=== PATIENT | female | born 1970 | race American Indian/Alaskan Native ===

== ENCOUNTER 2017-07-25 20:25 | Emergency (ER) | payer MEDICARE ==
[2017-07-26] MEDS ORDERED: XYLOCAINE 2% INFILTRATI ONE ×2 (01:12→01:54)
[2017-07-26] MEDS ORDERED: TYLENOL PO ONE (01:17)
[2017-07-26] MEDS ORDERED: BOOSTRIX IM ONE (01:18)
[2017-07-26] MEDS ORDERED: XYLOCAINE 1% 20 mL INFILTRATI ONE (01:18)
--- NOTE | 2017-07-26 01:18 | Emergency Department Report ---
ED Head Injury/Laceration HPI - HPI Occurred When: Today Mechanism: Fall Location: Frontal Pain: None Tetanus Status: Up to Date Symptoms: Loss of Consciousness: No, Nausea: No, Blurred Vision: No, Unusual Behavior: No, Headache: Yes, Swelling: Yes, Bruising: Yes, Break in Skin: Yes, Bleeding: Yes Other History: 46-year-old female past medical history seizures, chronic pain, GERD presents with complaint of laceration to left side frontal scalp. Patient states that she tripped at home fell and hit her head at the edge of a book table. Patient states she was dazed for several minutes. Denies discrete loss of consciousness. Patient is currently awake alert and oriented 3 fully lucid and not in acute distress. Visible small lacerations left frontal scalp/ forehead region. Tetanus vaccination up-to-date as per patient. Patient denies chest pain palpitations shortness of breath nausea vomiting blurry vision. Fully lucid and ambulatory. ED General PMH - Past Medical History General Medical History: other (Larry Verma) - Social History Smoking Status: Never Smoker ED Review of Systems ROS: Stated complaint: FALL/HEADACHE Other details as noted in HPI Constitutional: denies: chills, fever Eyes: denies: eye pain, eye discharge, vision change ENT: as per HPI. denies: ear pain, throat pain Respiratory: denies: cough, shortness of breath, wheezing Cardiovascular: denies: chest pain, palpitations Endocrine: no symptoms reported Gastrointestinal: denies: abdominal pain, nausea, diarrhea Genitourinary: denies: urgency, dysuria, discharge Musculoskeletal: denies: back pain, joint swelling, arthralgia Skin: denies: rash, lesions Neurological: denies: headache, weakness, paresthesias Psychiatric: denies: anxiety, depression Hematological/Lymphatic: denies: easy bleeding, easy bruising Head Inj w/lac Physical Exam - Exam General: Vital signs noted. No distress. Alert and acting appropriately. Adult Head Front + Back: 1 - 1 cm diagonal laceration here with surrounding abrasion Head: Yes PERRL, No Hemotympanum, No Hematoma/Ecchymosis, No Epistaxis, No Stepoff/Deformity, No Abrasion, No Foreign Body Wound Length (cm): 1 Laceration Location: Facial, Frontal Chest, Abd, & Ext: Yes Clear Lung Sounds, No Neck Pain (no midline tenderness no posterior neck tenderness on exam), No Chest Injury/Pain, No Regular Heart Rhythm, No Heart Murmur, No Abdominal Tenderness (abdomen soft nontender nondistended), No Back Tenderness, No Extremity Injury Neuroligical (Head Inj W/O Lac: Yes Normal Speech, Yes Normal Gait, No Lethargy , No Disorientation (patient is fully lucid and awake alert and oriented able to provide a detailed history and ambulatory), No Focal Numbness, No Focal Weakness - Laceration /Wound Repair Face Wound Location: head, face (left upper anterior forehead near her hairline) Wound Length (cm): 1 Wound's Depth, Shape: linear Irrigated w/ Saline (ccs): 500 Betadine Prep?: Yes Anesthesia: 1% Lidocaine Volume Anesthetic (ccs): 6 Wound Debrided: minimal Wound Repaired With: sutures Suture Size/Type: 4:0, proline Number of Sutures: 2 Progress: Area infiltrated with lidocaine. Good local anesthesia achieved. Area irrigated with saline. 2 Prolene sutures placed with good closure achieved. Covered with gauze and antibiotic ointment afterward. ED Critical Care Note - Critical Care Note Comments: A/P: Minor head injury, forehead laceration 1-sutures to be removed in 7 days 2-nexus criteria negative. Patient is fully lucid and ambulatory. Cranial nerves 2, 3, 4, 5, 6, 7, 8,10, 11, 12 intact on clinical exam, patient is fully lucid awake alert and oriented 3 conversant. Denies any upper or lower extremity paresthesias and has 5/5 strength in bilateral upper and lower extremities on clinical exam. As per history there is no indication patient had a seizure. Patient states she has been taking her seizure medicines which are Dilantin and Keppra on a regular basis 3-Tylenol when necessary 4- tetanus vaccine up-to-date 5- patient given post concussion precautions. Advised patient to return to the ED for any fevers chills nausea vomiting headache confusion. When drainage from site or erythema at site of laceration. ED Disposition Clinical Impression: Minor head injury without loss of consciousness Qualifiers: Encounter type: initial encounter Qualified Code(s): S09.90XA - Unspecified injury of head, initial encounter Forehead laceration Qualifiers: Encounter type: initial encounter Qualified Code(s): S01.81XA - Laceration without foreign body of other part of head, initial encounter Disposition: TO HOME OR SELFCARE Is pt being admited?: No Does the pt Need Aspirin: No Condition: Stable Instructions: Suture Care (ED), Laceration (ED), Minor Head Injury (ED), Concussion (ED) Additional Instructions: Sutures to be removed in 5-7 days. Patient can return to the ED for this. Prescriptions: Acetaminophen [Acetaminophen TAB] 500 mg PO Q6HR PRN #20 tablet PRN Reason: Headache Referrals: [facility] [Provider Group] - 3-5 Days Forms: Work/School Release Form(ED) Time of Disposition: 01:46
[2017-07-26 02:25] VITALS: BP 142/81
--- NOTE | 2017-07-26 03:05 | Cat Scan Report ---
FINAL REPORT PROCEDURE: CT HEAD/BRAIN WO CON TECHNIQUE: Computerized tomography of the head was performed without contrast material. HISTORY: s/p fall head contusion COMPARISON: No prior studies are available for comparison. FINDINGS: Skull and scalp: Normal. Paranasal sinuses: Normal. Ventricles and subarachnoid spaces: Normal. Cerebrum: No evidence of hemorrhage, acute infarction or mass . Cerebellum and brainstem: No evidence of hemorrhage, acute infarction or mass. Vasculature: Normal. Comments: None. IMPRESSION: Normal Examination
== END 2017-07-26 02:24 | disposition home or self-care (01) ==
LOC: ED 20:25
DX: S09.90XA Unspecified injury of head, initial encounter (principal); S01.81XA Laceration without foreign body of other part of head, initial encounter; W19.XXXA Unspecified fall, initial encounter; Y93.89 Activity, other specified; Y99.8 Other external cause status; Y92.89 Other specified places as the place of occurrence of the external cause
CPT/HCPCS: 70450

== ENCOUNTER 2017-08-01 15:32 | Emergency (ER) | payer MEDICARE ==
[2017-08-01 15:58] VITALS: BP 136/84
--- NOTE | 2017-08-01 18:20 | Emergency Department Report ---
Suture/Staple Removal - HPI Chief Complaint: Laceration/Recheck/Suture Stated Complaint: STUTURE REMOVAL Time Seen by Provider: 08/01/17 17:49 When Sutures or [place] Placed: 5-7 Days Ago Wound Location: left temporal ED Review of Systems ROS: Stated complaint: STUTURE REMOVAL Other details as noted in HPI Constitutional: denies: chills, fever Respiratory: denies: cough, shortness of breath, wheezing Cardiovascular: denies: chest pain, palpitations Gastrointestinal: denies: abdominal pain, nausea, diarrhea Skin: lesions (healing laceration with 3 sutures to the left temporal). denies : rash Neurological: denies: headache, weakness, numbness, paresthesias Psychiatric: denies: anxiety, depression ED Past Medical Hx - Past Medical History Hx Seizures: Yes Additional medical history: Lupus, heart murmur - Surgical History Additional Surgical History: B/L ankle, B/L Hips, GT placed and removed - Social History Smoking Status: Never Smoker - Medications Home Medications: Home Medications Medication Instructions Recorded Confirmed Last Taken Type Acetaminophen [Acetaminophen TAB] 500 mg PO Q6HR PRN #20 tablet 07/26/17 Unknown Rx Suture Removal Exam - Exam General: Vital signs noted. No distress. Alert and acting appropriately. Wound: No Pathologic Erythema, No Tenderness, No Drainage, No Pus, No Wound Dehiscence Other Systems: All other systems reviewed and are unremarkable. ED Course Vital Signs 08/01/17 15:54 Temperature 98.0 F Pulse Rate 87 Respiratory 16 Rate Blood Pressure 136/84 O2 Sat by Pulse 95 Oximetry ED Recheck MDM - Differential Diagnosis Suture/Staple Removal - Medical Decision Making This is a 46 y.o. female presents for suture removal. Patient examined by me. Vitals normal and in no acute distress. Patient is non-toxic appearing and stable. Remove 2 sutures with sterile scissors. Clean with normal saline and applied triple antibiotic ointment. Discharged home for outpatient treatment with OTC triple antibiotic ointment. Discussed ER care plan with patient. Patient agreed with plan. F/U with PCP in 2-3 days. Critical care attestation.: If time is entered above; I have spent that time in minutes in the direct care of this critically ill patient, excluding procedure time. ED Disposition Clinical Impression: Visit for suture removal Disposition: TO HOME OR SELFCARE Is pt being admited?: No Does the pt Need Aspirin: No Condition: Stable Instructions: Suture Removal (ED) Additional Instructions: Apply a thin layer of triple antibiotic with the ointment to wound twice today. Keep wound dry and clean. Follow up with Primary Care Provider in 2-3 days. Return to ER if red, swollen, foul discharge, or fever. Referrals: KEVIN ORDOÑEZ MD [Primary Care Provider] - 3-5 Days Time of Disposition: 18:24 Print Language: MACEDONIAN
[2017-08-01] MEDS ORDERED: TRIPLE ANTIBIOTIC TP ONE ×2 (18:25→18:28)
== END 2017-08-01 19:02 | disposition home or self-care (01) ==
LOC: ED 15:32
DX: S01.01XD Laceration without foreign body of scalp, subsequent encounter (principal)
CPT/HCPCS: A6250

== ENCOUNTER 2017-08-23 09:19 | Emergency (ER) | payer MEDICARE ==
--- NOTE | 2017-08-23 10:10 | Emergency Department Report ---
HPI - General Chief Complaint: Allergic Reaction Time Seen by Provider: 08/23/17 09:52 - HPI HPI: 46-year-old female difficult historian apparently has multiple medical problems including lupus and DVT "allergies" history of seizures .she is not on any anticoagulants. Yesterday she thinks she might got bit by something since develops angioedema to the lips also with the bit of hive-like itchy rash to the left side. She denies any other exposures she is not on CELSO inhibitor as she denies any drooling no airway problems no stridor. She is here for evaluation of a left-sided itchy red rash and some lip swelling. She thinks it might got better with Benadryl. She denies family history of this. She is unsure what might have brought it on ED Past Medical Hx - Past Medical History Previous Medical History?: Yes Hx Congestive Heart Failure: No Hx Diabetes: No Hx Sickle Cell Disease: No Hx Seizures: Yes Hx Asthma: No Hx COPD: No Hx HIV: No Additional medical history: Lupus, heart murmur - Surgical History Hx Breast Surgery: Yes Additional Surgical History: B/L ankle, B/L Hips, GT placed and removed - Social History Smoking Status: Never Smoker Substance Use Type: None - Medications Home Medications: Home Medications Medication Instructions Recorded Confirmed Last Taken Type Acetaminophen [Acetaminophen TAB] 500 mg PO Q6HR PRN #20 tablet 07/26/17 Unknown Rx Plaquenil 100 mg PO DAILY 08/06/17 08/06/17 Unknown History Phenytoin Chew [Dilantin Chew] 150 mg PO BID 30 Days tablet 08/07/17 Unknown Rx levETIRAcetam [Keppra TAB] 750 mg PO BID #60 tablet 08/07/17 Unknown Rx Famotidine [Pepcid] 20 mg PO BID #6 tablet 08/23/17 Unknown Rx Prednisone [predniSONE] 50 mg PO QDAY #5 tab 08/23/17 Unknown Rx ED Review of Systems ROS: Stated complaint: SWELLING FACE AND RASH ON BREAST Other details as noted in HPI Comment: All other systems reviewed and negative Constitutional: denies: diaphoresis, fever, malaise Eyes: denies: eye discharge, vision change ENT: denies: dental pain, hearing loss, epistaxis Respiratory: other (no drooling). denies: shortness of breath, SOB with exertion, SOB at rest, stridor Cardiovascular: denies: chest pain, palpitations, dyspnea on exertion, orthopnea , edema, syncope, paroxysmal nocturnal dyspnea Gastrointestinal: denies: abdominal pain, nausea, vomiting, diarrhea, constipation, hematemesis, melena, hematochezia Genitourinary: denies: frequency, hematuria, discharge, abnormal menses Skin: rash, lesions, pruritus. denies: change in color Neurological: denies: headache, weakness, numbness, paresthesias, confusion, abnormal gait, vertigo Hematological/Lymphatic: denies: easy bruising, swollen glands Physical Exam - Physical Exam Vital Signs: Vital Signs 08/23/17 09:26 Temperature 98.5 F Pulse Rate 88 Respiratory 18 Rate Blood Pressure 150/92 O2 Sat by Pulse 100 Oximetry General: Awake alert oriented 3 nontoxic in no acute distress Physical Exam: Early acute distress HEENT some mild lip angioedema airway is clear and patent no stridor no drooling or tongue angioedema no oropharynx angioedema chest is clear S tissue without retrx Cardiac is S1-S2 without murmur abdomen soft nontender without rebound or guarding extremities have no cce also no edema and no Homans sign is appreciated skin does have a left sided truncal erythematous urticarial rash with excoriation without cellulitis neuro she is alert and oriented 3 nonfocal exam ED Course Vital Signs 08/23/17 09:26 Temperature 98.5 F Pulse Rate 88 Respiratory 18 Rate Blood Pressure 150/92 O2 Sat by Pulse 100 Oximetry ED Medical Decision Making - Medical Decision Making Patient does appear to have an allergic phenomenon, she is given antihistamine as well as steroid and albuterol treatment she is to see her regular doctor in 2 days she was observed in ED for alcohol withdrawal worsening of symptoms reviewed vital signs stable symptoms improved in ED stable for outpatient follow -up no airway problems normal saturation Critical care attestation.: If time is entered above; I have spent that time in minutes in the direct care of this critically ill patient, excluding procedure time. ED Disposition Clinical Impression: Angioedema, Allergic reaction Disposition: - TO HOME OR SELFCARE Is pt being admited?: No Condition: Stable Instructions: Urticaria (ED), Angioedema (ED) Additional Instructions: See the doctor listed her regular doctor return immediately if new or alarming symptoms or [id number], Benadryl [id number] as directed as needed Prescriptions: Famotidine [Pepcid] 20 mg PO BID #6 tablet Prednisone [predniSONE] 50 mg PO QDAY #5 tab Referrals: PRIMARY CARE, [Primary Care Provider] - 3-5 Days Time of Disposition: 12:47
[2017-08-23] MEDS ORDERED: BENADRYL IM ONE (10:11)
[2017-08-23] MEDS ORDERED: DECADRON IM ONE (10:11)
[2017-08-23] MEDS ORDERED: PEPCID PO ONE (10:12)
[2017-08-23] MEDS ORDERED: DUONEB *Not for PRN Use IH ONE (10:12)
[2017-08-23 13:07] VITALS: BP 148/57
== END 2017-08-23 13:05 | disposition home or self-care (01) ==
LOC: ED 09:19
DX: T78.3XXA Angioneurotic edema, initial encounter (principal); T78.40XA Allergy, unspecified, initial encounter; R09.89 Other specified symptoms and signs involving the circulatory and respiratory systems; M32.9 Systemic lupus erythematosus, unspecified
CPT/HCPCS: 94640; 96372; 99283; J1100; J1200